=== PATIENT | male | born 1960 | race Caucasian/White ===

== ENCOUNTER 2018-08-16 10:22 | Day surgery (SDC) | payer MEDICAID ==
[2018-08-16] MEDS ORDERED: NS 500 ML IV ONE (10:39)
[2018-08-16] MEDS ORDERED: MIDAZOLAM 2 MG/2 ML VIAL ONE ×2 (12:06→12:44)
[2018-08-16] MEDS ORDERED: fentaNYL 100 MCG/2 ML INJ ONE (12:06)
--- NOTE | 2018-08-16 12:13 | PDPROPOC ---
Sedation Plan of Care Sedation Plan of Care: vital signs stable, mental status noted, patient educated of risks, benefits, alternatives, patient can tolerate sedation ASA Classification: ASA 2 Planned drugs: fentanyl, midazolam Mallampati Score: Class 2 Mallampati Reference Image: Patient passed 3-3-2 rule?: Yes
[2018-08-16] MEDS ORDERED: fentaNYL 100 MCG/2 ML INJ IVP ONE (12:50)
[2018-08-16] MEDS ORDERED: MIDAZOLAM 2 MG/2 ML VIAL IVP ONE (12:50)
[2018-08-16 14:04] VITALS: BP 110/76
== END 2018-08-16 14:15 | disposition home or self-care (01) ==
LOC: FSGY 10:22
PROVIDERS: ATTEND Internal Medicine Gastroenterology
DX: R13.10 Dysphagia, unspecified (principal); D12.2 Benign neoplasm of ascending colon
CPT/HCPCS: 43239; 45380; C1726; J2250; J3010